=== PATIENT | male | born 1990 | race Two or more races ===

== ENCOUNTER 2023-08-18 16:48 | Emergency (ER) | payer BC, OTHER ==
[~2023-08-18] VITALS: Ht 180.3 cm; Wt 67.7 kg
[2023-08-18 16:55] VITALS: BP 137/65; PULSE 85; RESP 18; TEMP 97.2; O2SAT 97
[2023-08-18] MEDS ORDERED: IBUPROFEN 800 MG TAB PO ONE (17:15)
[2023-08-18] MEDS ORDERED: cefTRIAXone SOD 1,000 MG VL IM ONE (17:15)
[2023-08-18] MEDS ORDERED: IBUP-1456 PO (17:17)
[2023-08-18] MEDS ORDERED: CLIN-203 PO (17:17)
[2023-08-18] MEDS ORDERED: CEPH500C PO (17:17)
== END 2023-08-18 17:52 | disposition home or self-care (01) ==
LOC: ER 16:48
DX: S90.862A Insect bite (nonvenomous), left foot, initial encounter (principal); L08.89 Other specified local infections of the skin and subcutaneous tissue; Z79.899 Other long term (current) drug therapy; W57.XXXA Bitten or stung by nonvenomous insect and other nonvenomous arthropods, initial encounter; Y93.89 Activity, other specified; Y92.89 Other specified places as the place of occurrence of the external cause; Y99.8 Other external cause status
CPT/HCPCS: 96372; 99283; J0696